=== PATIENT | male | born 1975 | race Caucasian/White ===

== ENCOUNTER 2022-09-06 17:01 | Emergency (ER) | payer OTHER, SELFPAY ==
[2022-09-06] MEDS ORDERED: Ibuprofen 800 MG TAB ONE (18:59)
== END 2022-09-06 19:15 | disposition home or self-care (01) ==
LOC: MADERS 17:01
DX: S93.401A Sprain of unspecified ligament of right ankle, initial encounter (principal); F17.210 Nicotine dependence, cigarettes, uncomplicated; V29.99XA Rider (driver) (passenger) of other motorcycle injured in unspecified traffic accident, initial encounter